=== PATIENT | female | born 1995 | race African-American/Black ===

== ENCOUNTER 2017-10-13 22:03 | Inpatient (IN) | payer MEDICAID ==
[~2017-10-13] VITALS: Ht 180.3 cm; Wt 146.5 kg
[2017-10-13 22:30] VITALS: BP 135/74
[2017-10-13] MEDS ORDERED: TERBUTALINE 1 MG/ML VIAL. SQ PRN (22:30)
[2017-10-13] MEDS ORDERED: LIDOCAINE 1% PF 30 ML VIAL. INJ PRN (22:30)
[2017-10-13] MEDS ORDERED: AMPICILLIN SODIUM 1 GM in IV NORMAL SALINE 50ML 50 ML IV SCH (22:30)
[2017-10-13] MEDS ORDERED: fentaNYL PF VIAL 100 MCG/2 ML VIAL IV PRN (22:30)
[2017-10-13] MEDS ORDERED: CITRIC ACID/SODIUM CITRATE 30 ML SOLUTION. PO PRN (22:30)
[2017-10-13] MEDS ORDERED: MAG HYDROX/ALUMINUM HYD/SIMETH 30 ML ORAL.SUSP PO PRN (22:30)
[2017-10-13] MEDS ORDERED: IBUPROFEN 600 MG TABLET. PO PRN (22:30)
[2017-10-13] MEDS ORDERED: ACETAMINOPHEN 325 MG TABLET. PO PRN (22:30)
[2017-10-13] MEDS ORDERED: BUTORPHANOL 2 MG/ML VIAL. IV PRN (22:30)
[2017-10-13] MEDS ORDERED: OXYTOCIN 30 UNIT/500 ML PREMIX 500 ML IV PRN (22:30)
[2017-10-13] MEDS ORDERED: 0.9 % SODIUM CHLORIDE 10 ML DISP.SYRIN. IV PRN (22:30)
[2017-10-13] MEDS ORDERED: AMPICILLIN SODIUM 2 GM in IV NORMAL SALINE 100ML 100 ML IV ONE (23:00)
[2017-10-13] MEDS ORDERED: DINOPROSTONE 10 MG SUPP.VAG VG ONE (23:00)
[2017-10-13] MEDS: IV RINGERS,LACTATED 1000ML 1,000 ML IV SCH (23:00)
[2017-10-13] MEDS: ZOLPIDEM 5 MG TABLET. PO PRN (23:49)
[2017-10-13 23:52] LABS: HEMATOCRIT 35.9 % (36.0-47.0); HEMOGLOBIN 11.7 g/dL (12.0-15.5); RED BLOOD COUNT 4.16 x10^6/uL (3.50-5.40); WHITE BLOOD COUNT 6.8 x10^3/uL (4.0-11.0)
[2017-10-14] MEDS ORDERED: AMPICILLIN SODIUM IV Push 1 GM VIAL. IVP SCH (03:00)
[2017-10-14] MEDS: IV RINGERS,LACTATED 1000ML 1,000 ML IV SCH ×2 (04:57→13:56)
[2017-10-14] MEDS ORDERED: PNV1TABL25 PO (10:06)
[2017-10-14] MEDS: OXYTOCIN 30 UNIT/500 ML PREMIX 500 ML IV PRN (13:04)
[2017-10-14] MEDS ORDERED: DINOPROSTONE 10 MG SUPP.VAG VG ONE (14:30)
[2017-10-14] MEDS: ZOLPIDEM 5 MG TABLET. PO PRN (20:39)
[2017-10-15] MEDS ORDERED: DINOPROSTONE 10 MG SUPP.VAG VG ONE (05:00)
[2017-10-15] MEDS: IV RINGERS,LACTATED 1000ML 1,000 ML IV SCH (18:39)
[2017-10-15] MEDS: OXYTOCIN 30 UNIT/500 ML PREMIX 500 ML IV PRN (18:39)
[2017-10-15] MEDS: ONDANSETRON PF 4 MG/2 ML VIAL. IV PRN (18:40)
[2017-10-16] MEDS: IV RINGERS,LACTATED 1000ML 1,000 ML IV SCH ×4 (01:17→14:22)
[2017-10-16] MEDS ORDERED: L&D EPIDURAL CASSETTE 100 ML EP ONE (11:55)
[2017-10-16] MEDS ORDERED: ROPIVacaine 0.2% IN 0.9%NACL PF 40 MG/20 ML DISP.SYRIN. ONE ×2 (11:56→12:00)
[2017-10-16] MEDS ORDERED: fentaNYL PF VIAL 100 MCG/2 ML VIAL EPI ONE (12:30)
[2017-10-16] MEDS ORDERED: ONDANSETRON PF 4 MG/2 ML VIAL. IV PRN (12:30)
[2017-10-16] MEDS ORDERED: NALOXONE 0.4 MG/ML VIAL. IV PRN (12:30)
[2017-10-16] MEDS ORDERED: ROPIVacaine 0.2% PF 10 ML VIAL. EPI ONE (12:30)
[2017-10-16] MEDS ORDERED: ePHEDrine PF IN SALINE 50 MG/5 ML DISP.SYRIN IV PRN (12:30)
[2017-10-16] MEDS: L&D EPIDURAL CASSETTE 100 ML EP PRN ×2 (13:00→15:10)
[2017-10-16] MEDS: ONDANSETRON PF 4 MG/2 ML VIAL. IV PRN (14:21)
[2017-10-16] MEDS ORDERED: BUPIVACAINE MPF 0.25% 30 ML VIAL. ONE ×2 (17:25→17:28)
[2017-10-16] MEDS ORDERED: BUPIVACAINE 0.5% 50 ML VIAL. IJ PRN (18:45)
[2017-10-16] MEDS ORDERED: BUPIVACAINE MPF 0.5% 30 ML VIAL. ONE (18:51)
--- NOTE | 2017-10-16 19:09 | PDOC ---
VAGINAL DELIVERY DATE DATE: 10/16/17 TIME: 19:08 : 3 Para: 3 EGA: 39 VAGINAL DELIVERY: VTX VACCUM ASSISTED: No PLACENTA: Spontaneous 8/9 SEX: Male WEIGHT Weight [ 6 lbs. 14 oz.] Nuchal Cord: Yes, Times 1 Amniotic Fluid: Clear PAIN: Epidural EPISIOTOMY: No EXTENSION: No EBL 400 ml COMPLICATIONS none CONDITION pt. stable Signs of Intrauterine Infectio: None Shoulder Dystocia: No, Humberto Maneuver Problems: CHANTELL JORDAN Jr, MD Oct 16, 2017 19:09
[2017-10-16] MEDS ORDERED: PHENYLEPH/MINERAL OIL/PETROLAT RECTAL OINTMENT 28GM TUBE. RC PRN (19:15)
[2017-10-16] MEDS ORDERED: HYDROCORTISONE 1% TOPICAL OINTMENT 30GM TUBE. TP PRN (19:15)
[2017-10-16] MEDS ORDERED: OXYTOCIN 30 UNIT/500 ML PREMIX 500 ML IV PRN (19:15)
[2017-10-16] MEDS ORDERED: ZOLPIDEM 5 MG TABLET. PO PRN (19:15)
[2017-10-16] MEDS ORDERED: MAGNESIUM HYDROXIDE 2,400 MG/30 ML ORAL.SUSP. PO PRN (19:15)
[2017-10-16] MEDS ORDERED: 0.9 % SODIUM CHLORIDE 10 ML DISP.SYRIN. IV PRN (19:15)
[2017-10-16] MEDS ORDERED: diphenhydrAMINE HCL 25 MG CAPSULE PO PRN (19:15)
[2017-10-16] MEDS ORDERED: BENZOCAINE 20% TOPICAL AEROSOL SPRAY 57GM CAN. TP PRN (19:15)
[2017-10-16] MEDS ORDERED: MAG HYDROX/ALUMINUM HYD/SIMETH 30 ML ORAL.SUSP PO PRN (19:15)
[2017-10-16] MEDS ORDERED: SIMETHICONE 80 MG TAB.CHEW PO PRN (19:15)
[2017-10-16] MEDS ORDERED: ACETAMINOPHEN 325 MG TABLET. PO PRN (19:15)
[2017-10-16] MEDS ORDERED: MMR per PROTOCOL. MC PRN (19:15)
[2017-10-16] MEDS: IBUPROFEN 800 MG TABLET. PO PRN (20:21)
[2017-10-16 21:45] VITALS: BP 139/79
[2017-10-16] MEDS ORDERED: AMMONIA AROMATIC 15% INHALANT AMPUL. ONE (21:47)
[2017-10-16 22:45] VITALS: BP 129/72
[2017-10-17] MEDS: oxyCODONE/APAP 5/325 1 TAB TABLET PO PRN ×4 (00:58→22:47)
[2017-10-17 01:47] VITALS: BP 126/78
[2017-10-17 05:19] VITALS: BP 131/86
[2017-10-17 06:28] LABS: BASO % 0 % (0-3); EOS % 1 % (0-3); HEMATOCRIT 32.5 % (36.0-47.0); HEMOGLOBIN 10.7 g/dL (12.0-15.5); LYMPH # 1.4 x10^3/uL (1.0-4.8); LYMPH % 10 % (24-48); MEAN CORPUSCULAR HEMOGLOBIN 29 pg (25-35); MEAN CORPUSCULAR HGB CONC 33 g/dL (31-37); MEAN CORPUSCULAR VOLUME 87 fL (79-100); MONO % 6 % (0-9); NEUT % 84 % (31-73); PLATELET COUNT 178 x10^3/uL (140-400); RED BLOOD COUNT 3.73 x10^6/uL (3.50-5.40); RED CELL DISTRIBUTION WIDTH 13.8 % (11.5-14.5); WHITE BLOOD COUNT 14.6 x10^3/uL (4.0-11.0)
[2017-10-17] MEDS ORDERED: FERROUS SULFATE 325 MG TABLET. PO SCH (08:00)
[2017-10-17] MEDS ORDERED: DIPHTH,PERTUSS(ACELL),TET TOX 0.5 ML DISP.SYRIN. VAX IM ONE (09:00)
[2017-10-17] MEDS: DOCUSATE SODIUM 100 MG CAPSULE. PO PRN ×2 (09:16→22:45)
[2017-10-17 11:38] VITALS: BP 111/73
--- NOTE | 2017-10-17 11:53 | PDOC ---
OB Progress Note Date of Service 10/17/17 Time of Evaluation 1150 Notes Pt. feeling well. No complaints. Lab Laboratory Tests Test 10/17/17 06:18 White Blood Count 14.6 x10^3/uL (4.0-11.0) Red Blood Count 3.73 x10^6/uL (3.50-5.40) Hemoglobin 10.7 g/dL (12.0-15.5) Hematocrit 32.5 % (36.0-47.0) Mean Corpuscular Volume 87 fL (79-100) Mean Corpuscular Hemoglobin 29 pg (25-35) Mean Corpuscular Hemoglobin Concent 33 g/dL (31-37) Red Cell Distribution Width 13.8 % (11.5-14.5) Platelet Count 178 x10^3/uL (140-400) Neutrophils (%) (Auto) 84 % (31-73) Lymphocytes (%) (Auto) 10 % (24-48) Monocytes (%) (Auto) 6 % (0-9) Eosinophils (%) (Auto) 1 % (0-3) Basophils (%) (Auto) 0 % (0-3) Neutrophils # (Auto) 12.2 x10^3uL (1.8-7.7) Lymphocytes # (Auto) 1.4 x10^3/uL (1.0-4.8) Monocytes # (Auto) 0.8 x10^3/uL (0.0-1.1) Eosinophils # (Auto) 0.1 x10^3/uL (0.0-0.7) Basophils # (Auto) 0.0 x10^3/uL (0.0-0.2) Laboratory Tests Test 10/17/17 06:18 White Blood Count 14.6 x10^3/uL (4.0-11.0) Red Blood Count 3.73 x10^6/uL (3.50-5.40) Hemoglobin 10.7 g/dL (12.0-15.5) Hematocrit 32.5 % (36.0-47.0) Mean Corpuscular Volume 87 fL (79-100) Mean Corpuscular Hemoglobin 29 pg (25-35) Mean Corpuscular Hemoglobin Concent 33 g/dL (31-37) Red Cell Distribution Width 13.8 % (11.5-14.5) Platelet Count 178 x10^3/uL (140-400) Neutrophils (%) (Auto) 84 % (31-73) Lymphocytes (%) (Auto) 10 % (24-48) Monocytes (%) (Auto) 6 % (0-9) Eosinophils (%) (Auto) 1 % (0-3) Basophils (%) (Auto) 0 % (0-3) Neutrophils # (Auto) 12.2 x10^3uL (1.8-7.7) Lymphocytes # (Auto) 1.4 x10^3/uL (1.0-4.8) Monocytes # (Auto) 0.8 x10^3/uL (0.0-1.1) Eosinophils # (Auto) 0.1 x10^3/uL (0.0-0.7) Basophils # (Auto) 0.0 x10^3/uL (0.0-0.2) Medications Current Medications Sodium Chloride (Normal Saline Flush) 3 ml QSHIFT PRN IV AFTER MEDS AND BLOOD DRAWS; Start 10/13/17 at 22:30 Ringer's Solution 1,000 ml @ 125 mls/hr Q8H IV Last administered on 14:22; Start 10/13/17 at 22:23 Butorphanol Tartrate (Stadol) 2 mg PRN Q1HR PRN IV Severe labor pain; Start at 22:30; Stop 10/17/17 at 05:54; Status DC Fentanyl Citrate (Fentanyl 2ml Vial) 100 mcg PRN Q20MIN PRN IV Labor pain; Start 10/13/17 at 22:30 Acetaminophen (Tylenol) 650 mg PRN Q6HRS PRN PO MILD PAIN / TEMP; Start at 22:30 Ondansetron HCl (Zofran) 4 mg PRN Q4HRS PRN IV NAUSEA/VOMITING Last administered on 10/16/17 14:21; Start 10/13/17 at 22:30 Al Hydroxide/Mg Hydroxide (Mylanta Plus Xs) 30 ml PRN Q4HRS PRN PO HEARTBURN / GAS; Start 10/13/17 at 22:30 Citric Acid/ Sodium Citrate (Bicitra) 30 ml 1X PRN PRN PO DYSPEPSIA; Start 11/17 at 22:30; Stop 10/14/17 at 22:29; Status DC Zolpidem Tartrate (Ambien) 5 mg PRN QHS PRN PO INSOMNIA Last administered on 20:39; Start 10/13/17 at 22:30 Terbutaline Sulfate (Brethine) 0.25 mg 1X PRN PRN SQ SEE COMMENTS; Start 10/13 at 22:30; Stop 10/14/17 at 22:29; Status DC Lidocaine HCl 30 ml 1X PRN PRN INJ SEE COMMENTS; Start 10/13/17 at 22:30; Stop 10/15/17 at 22:29; Status DC Ampicillin Sodium 2 gm/Sodium Chloride 100 ml @ 200 mls/hr 1X ONCE IV ; Start 10/13/17 at 23:00; Stop 10/14/17 at 10:01; Status DC Ampicillin Sodium 1 gm/Sodium Chloride 50 ml @ 100 mls/hr Q4H IV ; Start 10/13 at 22:30; Status UNV Oxytocin/Sodium Chloride 500 ml @ 0 mls/hr CONT PRN IV SEE I/O RECORD Last administered on 10/15/17 18:39; Start 10/13/17 at 22:30; Status Future hold Oxytocin/Sodium Chloride 500 ml @ 0 mls/hr CONT PRN PRN IV Post delivery bleeding Last administered on 10/16/17 19:24; Start 10/13/17 at 22:30 Ibuprofen (Motrin) 600 mg PRN Q6HRS PRN PO MODERATE PAIN; Start 10/13/17 at 22 :30 Dinoprostone (Cervidil) 10 mg 1X ONCE VG Last administered on 10/13/17 23:50 ; Start 10/13/17 at 23:00; Stop 10/13/17 at 23:01; Status DC Ampicillin Sodium (Omnipen) 1 gm Q4H IVP ; Start 10/14/17 at 03:00; Stop 10/14 at 10:01; Status DC Dinoprostone (Cervidil) 10 mg 1X ONCE VG ; Start 10/14/17 at 14:30; Stop at 14:31; Status DC Dinoprostone (Cervidil) 10 mg 1X ONCE VG Last administered on 10/15/17 05:05 ; Start 10/15/17 at 05:00; Stop 10/15/17 at 05:01; Status DC Ropivacaine/ Fentanyl/NS 100 ml @ As Directed STK-MED ONCE EP ; Start at 11:55; Stop 10/17/17 at 05:54; Status DC Ropivacaine/ Sodium Chloride 40 mg STK-MED ONCE .ROUTE ; Start 10/16/17 at 11: 56; Stop 10/16/17 at 11:57; Status DC Ephedrine Sulfate 10 mg PRN Q2MIN PRN IV IF SBP<90; Start 10/16/17 at 12:30 Naloxone HCl (Narcan) 0.04 mg PRN Q1MIN PRN IV SEE COMMENTS; Start 10/16/17 at 12:30 Fentanyl Citrate (Fentanyl 2ml Vial) 100 mcg 1X ONCE EPI ; Start 10/16/17 at 12:30; Stop 10/16/17 at 12:32; Status DC Ropivacaine/ Fentanyl/NS 100 ml @ 14 mls/hr CONT PRN EP PAIN Last administered on 10/16/17t 15:10; Start 10/16/17 at 12:30; Stop 10/17/17 at 05 :54; Status DC Ondansetron HCl (Zofran) 4 mg PRN Q6HRS PRN IV NAUSEA/VOMITING; Start at 12:30 Ropivacaine (Naropin 0.2%) 20 ml 1X ONCE EPI ; Start 10/16/17 at 12:30; Stop 10/16/17 at 12:32; Status DC Bupivacaine HCl (Sensorcaine Mpf 0.25%) 30 ml STK-MED ONCE .ROUTE ; Start 10/16 at 17:25; Stop 10/16/17 at 17:26; Status DC Bupivacaine HCl (Sensorcaine Mpf 0.25%) 30 ml STK-MED ONCE .ROUTE ; Start 10/16 at 17:28; Stop 10/16/17 at 17:29; Status DC Bupivacaine HCl (Marcaine 0.5%) 50 ml STAT PRN IJ PAIN; Start 10/16/17 at 18: 45 Bupivacaine HCl (Sensorcaine Mpf 0.5%) 30 ml STK-MED ONCE .ROUTE ; Start at 18:51; Stop 10/16/17 at 18:52; Status DC Sodium Chloride (Normal Saline Flush) 10 ml QSHIFT PRN IV AFTER MEDS AND BLOOD DRAWS; Start 10/16/17 at 19:15 Oxytocin/Sodium Chloride 500 ml @ 62.5 mls/hr CONT PRN IV SEE I/O RECORD; Start 10/16/17 at 19:15; Stop 10/17/17 at 03:14; Status DC Acetaminophen (Tylenol) 650 mg PRN Q6HRS PRN PO MILD PAIN / TEMP; Start at 19:15 Ibuprofen (Motrin) 800 mg PRN Q8HRS PRN PO INFLAMMATION/PAIN PREVENTION Last administered on 10/16/17t 20:21; Start 10/16/17 at 19:15 Docusate Sodium (Colace) 100 mg PRN BID PRN PO CONSTIPATION Last administered on 10/17/17t 09:16; Start 10/16/17 at 19:15 Magnesium Hydroxide (Milk Of Magnesia) 2,400 mg PRN DAILY PRN PO CONSTIPATION; Start 10/16/17 at 19:15 Al Hydroxide/Mg Hydroxide (Mylanta Plus Xs) 30 ml PRN Q4HRS PRN PO HEARTBURN / GAS; Start 10/16/17 at 19:15 Simethicone (Gas-X) 80 mg PRN AFTMEALHC PRN PO GAS / BLOATING; Start 10/16/17 at 19:15 Diphenhydramine HCl (Benadryl) 25 mg PRN Q6HRS PRN PO ITCHING; Start 10/16/17 at 19:15 Benzocaine (Americaine) 1 spray PRN QID PRN TP TOPICAL PAIN; Start 10/16/17 at 19:15 Phenyleph/Shark Oil/Min Oil/Petrol (Preparation H) 1 christian PRN QID PRN RC RECTAL PAIN; Start 10/16/17 at 19:15 Hydrocortisone (Cortaid) 1 christian PRN QID PRN TP PERINEAL PAIN; Start 10/16/17 at 19:15 Ferrous Sulfate (Feosol) 325 mg BIDWMEALS PO ; Start 10/17/17 at 08:00 Zolpidem Tartrate (Ambien) 5 mg PRN QHS PRN PO INSOMNIA, MAY REPEAT X1; Start 10/16/17 at 19:15 Info (Do NOT chart on this placeholder) 1 ea 1X PRN PRN MC SEE COMMENTS; Start 10/16/17 at 19:15; Status Cancel Info (Do NOT chart on this placeholder) 1 ea 1X PRN PRN MC SEE COMMENTS; Start 10/16/17 at 19:15 Oxycodone/ Acetaminophen (Percocet 5/325) 2 tab PRN Q4HRS PRN PO MODERATE PAIN , SEVERE PAIN Last administered on 10/17/17 09:17; Start 10/16/17 at 19:15 Ammonia (Aromatic Spirit) (Amoply) 1 each STK-MED ONCE .ROUTE ; Start 10/16/17 at 21:47; Stop 10/16/17 at 21:48; Status DC Diphtheria/ Tetanus/Acell Pertussis (Boostrix) 0.5 ml ONCE ONCE VAX IM Last administered on 10/17/17 09:31; Start 10/17/17 at 09:00; Stop 10/17/17 at 09 :01; Status DC Active Scripts Active Reported Tablet (Pnv Cmb#95/Ferrous Fumarate/Fa) 1 Each Tablet 1 Tab PO DAILY Exam Abd: soft, non tender, fundus firm Assessment PPD#1 s/p Plan of Care: Continue current Tx, Mgmt CHANTELL JORDAN Jr, MD Oct 17, 2017 11:53
[2017-10-17 15:48] VITALS: BP 115/82
[2017-10-17 19:28] VITALS: BP 134/90
[2017-10-17] MEDS: IBUPROFEN 800 MG TABLET. PO PRN (22:46)
[2017-10-17 23:03] VITALS: BP 122/79
[2017-10-18 06:15] VITALS: BP 146/86
[2017-10-18 06:18] VITALS: BP 138/86
[2017-10-18 06:20] VITALS: BP 134/89
--- NOTE | 2017-10-18 08:49 | PDOC1 ---
OB - History Hx of Present Care: Good Care Ultrasounds: Normal mid trimester US Obstetrical Complications: None Medical Complications: None Past Family/Social History * Past Medical, Surgical, Family and Obstetric Histories reviewed from chart. Blood Type: O+ Rubella: Immune RPR/VDRL: Negative GBS Status: Negative HBsAG: Negative OB - Chief Complaint & HPI Date of Admission: Date of Admission: Oct 13, 2017 at 22:03 Chief Complaint/History : 4 Para: 2 EDC: Oct 20, 2017 Reason for admission: induction of labor Indication for induction: other Admission Nurse Assessment Rev: Yes Problems: OB - Admission Exam Physical Exam Vitals: VS - Last 72 Hours, by Label Date Time Temp Pulse Resp B/P (MAP) Pulse Ox O2 Delivery O2 Flow Rate FiO2 10/18/17 06:20 134/89 (104) 10/18/17 06:18 138/86 (103) 10/18/17 06:15 146/86 (106) 10/18/17 05:56 98.0 80 18 96 Room Air 98.0 10/17/17 23:55 18 Room Air 10/17/17 23:03 97.6 80 18 122/79 (93) 98 Room Air 97.6 10/17/17 22:47 20 10/17/17 19:28 97.6 71 16 134/90 (105) 99 Room Air 97.6 10/17/17 15:48 98.9 76 115/82 (93) 99 Room Air 98.9 10/17/17 11:38 98.1 86 16 111/73 (86) 98 Room Air 98.1 10/17/17 05:19 97.7 77 18 131/86 (101) 98 Room Air 97.7 10/17/17 01:47 98.1 86 126/78 (94) 99 Room Air 98.1 10/17/17 00:58 18 Room Air 10/16/17 22:45 97.7 92 18 129/72 (91) 96 Room Air 97.7 10/16/17 21:45 97.5 84 18 139/79 (99) 97 Room Air 97.5 10/16/17 15:10 20 10/16/17 13:00 20 HEENT: Normal, Nasal Mucosa Normal, Oropharynx Normal, Moist Membranes, Fontanelles Normal Heart: Regular Rate Lungs: Clear, Equal Abdomen: Gravid Extremities: Normal Pulses, No tenderness or swelling Reflexes: Normal Cervical Dilatation: 1cm Effacement: 25% Amniotic Fluid: Clear Heart Rate: Normal Accelerations: Accelerations Present Intensity: Mild Assessment/Plan Assessment/Plan TIUP Induction ACSVD Problems: ROSEY CLAY MD Oct 18, 2017 08:49
--- NOTE | 2017-10-18 08:50 | PDOC3 ---
OB DISCHARGE SUMMARY DATE OF ADMISSION: 10/13/17 DATE OF DISCHARGE: 10/19/17 REASON FOR ADMISSION: Induction of labor PROCEDURES: Ultrasound INTRAPARTUM PROCEDURES: Spontanous Vag Deliv PROCEDURES: None OPERATIONS: None DISCHARGE DIAGNOSIS: Term Delivered DISCHARGE INFORMATION: Activity, Diet HOSPITAL COURSE Unremarkable CONDITION AT DISCHARGE Stable ROSEY CLAY MD Oct 18, 2017 08:50
[2017-10-18] MEDS ORDERED: NAPR-683 PO (08:55)
[2017-10-18] MEDS ORDERED: HYDR-971 PO (08:55)
[2017-10-18] MEDS: DOCUSATE SODIUM 100 MG CAPSULE. PO PRN (09:56)
[2017-10-18] MEDS: IBUPROFEN 800 MG TABLET. PO PRN ×2 (09:56→18:40)
[2017-10-18] MEDS: oxyCODONE/APAP 5/325 1 TAB TABLET PO PRN (09:57)
[2017-10-18 10:53] VITALS: BP 124/69
--- NOTE | 2017-10-18 18:39 | PN ---
DATE: 10/14/2017 SUBJECTIVE: The patient underwent Cervidil inductions. Cervidil was placed for 12 hours. OBJECTIVE: On my examination of the patient the following morning, the patient had not made significant change as Cervidil was placed. Contractions were irregular, difficult to monitor. tones are reassuring. PLAN: Continue induction. ROSEY CLAY MD DR: THADDEUS/ayah JOB#: [id number] / [id number]
--- NOTE | 2017-10-18 20:34 | PN ---
DATE: 10/15/2017 REASON FOR ENCOUNTER: Continued Cervidil induction. The patient had Cervidil placed. On examination, on morning of 10/15/2017, the Cervidil was not in the vagina, perhaps supposedly had most likely been lost while the patient was in the bathroom. The patient was given time off and another Cervidil was placed and continued induction. heart tones are reassuring, contractures were irregular. The patient was still difficult to monitor. PLAN: Anticipate control of spontaneous vaginal delivery. ROSEY CLYA MD DR: THADDEUS/ayah JOB#: [id number] / [id number]
== END 2017-10-18 19:30 | disposition home or self-care (01) | DRG 775 ==
LOC: 3 SO LND 22:03
PROVIDERS: ADMIT Specialist; ATTEND Specialist
PROC: 10E0XZZ Delivery of Products of Conception, External Approach (ICD-10-PCS; principal; 2017-10-16)
PROC: 3E0R3BZ Introduction of Anesthetic Agent into Spinal Canal, Percutaneous Approach (ICD-10-PCS; 2017-10-16)
PROC: 00HU33Z Insertion of Infusion Device into Spinal Canal, Percutaneous Approach (ICD-10-PCS; 2017-10-16)
PROC: 3E0P7VZ Introduction of Hormone into Female Reproductive, Via Natural or Artificial Opening (ICD-10-PCS; 2017-10-16)
DX: O69.81X0 Labor and delivery complicated by cord around neck, without compression, not applicable or unspecified (principal); Z23 Encounter for immunization; Z37.0 Single live birth; Z3A.39 39 weeks gestation of pregnancy
CPT/HCPCS: 36415; 85025; 85027; 86593; 86850; 86900; 86901; 90715; J2405; J2590; J2795; J3490; J7120